=== PATIENT | male | born 1990 | race Caucasian/White ===

== ENCOUNTER 2017-11-29 10:59 | Emergency (ER) | payer BC, OTHER ==
[2017-11-29 11:05] VITALS: BP 133/79; PULSE 52; TEMP 97.6; BMI 29.1
--- NOTE | 2017-11-29 11:07 | PDOC ---
History of Present Illness - General Chief Complaint: Pain Stated Complaint: RT FOOT RADIATING TO ANKLE PAIN Time Seen by Provider: 11/29/17 11:05 History Source: Patient Exam Limitations: No Limitations - History of Present Illness Initial Comments: 27 yo M presents with R foot pain for the past few days. He states that he was lifting something heavy yesterday, woke up with pain to the R foot, dorsal surface and into the arch. No direct trauma to the foot. No numbness or weakness. He runs 2 miles approximately 3 times per week, has not changed his mileage. He lifts weights, no recent changes. He does not have pain with stretching his foot, just with walking. 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 Past History - Past Medical History Allergies/Adverse Reactions: Allergies Allergy/AdvReac Type Severity Reaction Status Date / Time No Known Allergies Allergy Verified 11/29/17 11:00 Home Medications: Ambulatory Orders Methylprednisolone [Medrol Dose Sukhwinder] 4 mg PO ASDIR #21 tablet 11/29/17 COPD: No - Immunization History Immunization Up to Date: Yes - Suicide/Smoking/Psychosocial Hx Smoking History: Never smoked Have you smoked in the past 12 months: No Number of Cigarettes Smoked Daily: 0 Information on smoking cessation initiated: No Hx Alcohol Use: (occasional) Drug/Substance Use Hx: No Substance Use Type: None Review of Systems - Review of Systems Able to Perform ROS?: Yes Comments:: GENERAL/CONSTITUTIONAL: No fever or chills. No weakness. HEAD, EYES, EARS, NOSE AND THROAT: No change in vision. No ear pain or discharge. No sore throat. MUSCULOSKELETAL: No joint or muscle swelling or pain. No neck or back pain. SKIN: No rash NEUROLOGIC: No headache, vertigo, loss of consciousness, or change in strength/ sensation. HEMATOLOGIC/LYMPHATIC: No anemia, easy bleeding, or history of blood clots. ALLERGIC/IMMUNOLOGIC: No hives or skin allergy. *Physical Exam - Vital Signs Last Vital Signs Temp Pulse Resp BP Pulse Ox 97.6 F 52 L 18 133/79 100 11/29/17 11:00 11/29/17 11:00 11/29/17 11:00 11/29/17 11:00 11/29/17 11:00 - Physical Exam Comments: GENERAL: Awake, alert, and fully oriented, in no acute distress HEAD: No signs of trauma EYES: PERRLA, EOMI, sclera anicteric, conjunctiva clear EXTREMITIES: R foot with tenderness to the dorsal foot just proximal to the toes. No swelling, no erythema, no skin changes. Plantar fascia with no tenderness. No bony tenderness. Remainder of extremities with normal range of motion, no edema. No clubbing or cyanosis. No cords, erythema, or tenderness. NEUROLOGICAL: Cranial nerves II through XII grossly intact. Normal speech, normal gait. Motor and sensation intact. SKIN: Warm, Dry, normal turgor, no rashes or lesions noted. Medical Decision Making - Medical Decision Making 11/29/17 15:57 Contacted patient with XR results. I have sent medrol dose sukhwinder to his pharmacy. Recommended f/u with podiatry or sports med for foot pain, as I suspect a tendinitis. *DC/Admit/Observation/Transfer Diagnosis at time of Disposition: Foot pain, right - Discharge Dispostion Disposition: HOME Condition at time of disposition: Stable Decision to Admit order: No - Prescriptions Prescriptions: Methylprednisolone [Medrol Dose Sukhwinder] 4 mg PO ASDIR #21 tablet - Referrals Referrals: Kenny Felix [Primary Care Provider] - - Patient Instructions Printed Discharge Instructions: DI for Foot Pain - Post Discharge Activity Forms/Work/School Notes: Back to Work
== END 2017-11-29 13:50 | disposition home or self-care (01) ==
LOC: FER 10:59
DX: M79.671 Pain in right foot (principal)
CPT/HCPCS: 73630-TC-RT-FY; 99283-25

== ENCOUNTER 2018-06-10 13:36 | Emergency (ER) | payer BC ==
[2018-06-10 13:55] VITALS: TEMP 98.1; BMI 28.3
--- NOTE | 2018-06-10 14:09 | PDOC ---
History of Present Illness - General History Source: Patient Exam Limitations: No Limitations - History of Present Illness Initial Comments: 06/10/18 14:40 The patient is a 28 year old male, with no significant past medical history, who presents to the emergency department 4 days s/p fall with bruising and pain. As per patient [place] and fell on a log onto his left flank. He notes the pain with associated bruising to his flank and upper left ribs, prompting his visit to the ER. He denies any recent chest pain, pain with deep inspiration, or shortness of breath. He denies any recent fevers, chills, headache or dizziness. He denies any recent nausea, vomit, diarrhea or constipation. He denies any recent dysuria , frequency, urgency or hematuria. Allergies: NKDA Past surgical history: None reported. Social History: Social alcohol usage. <Maggy Yan - Last Filed: 06/10/18 14:40> <Oneida Gongora - Last Filed: 06/10/18 16:55> - General Chief Complaint: Injury Stated Complaint: FALL, LEFT SIDE Time Seen by Provider: 06/10/18 13:39 Past History <Maggy Yan - Last Filed: 06/10/18 14:40> - Past Medical History COPD: No - Immunization History Immunization Up to Date: Yes - Suicide/Smoking/Psychosocial Hx Smoking History: Never smoked Have you smoked in the past 12 months: No Number of Cigarettes Smoked Daily: 0 Information on smoking cessation initiated: No Hx Alcohol Use: No Drug/Substance Use Hx: No Substance Use Type: None <Oneida Gongora - Last Filed: 06/10/18 16:55> - Past Medical History Allergies/Adverse Reactions: Allergies Allergy/AdvReac Type Severity Reaction Status Date / Time No Known Allergies Allergy Verified 06/10/18 13:37 Home Medications: Ambulatory Orders NK [No Known Home Medication] 06/10/18 Review of Systems - Review of Systems Able to Perform ROS?: Yes Comments:: 06/10/18 14:41 GENERAL/CONSTITUTIONAL: No fever or chills. No weakness. HEAD, EYES, EARS, NOSE AND THROAT: No change in vision. No ear pain or discharge. No sore throat. GASTROINTESTINAL: No nausea, vomiting, diarrhea or constipation. GENITOURINARY: No dysuria, frequency, or change in urination. CARDIOVASCULAR: No chest pain or shortness of breath. RESPIRATORY: No cough, wheezing, or hemoptysis. +MUSCULOSKELETAL: Left flank and left rib pain with bruising. SKIN: No rash NEUROLOGIC: No headache, vertigo, loss of consciousness, or change in strength/ sensation. ENDOCRINE: No increased thirst. No abnormal weight change. HEMATOLOGIC/LYMPHATIC: No anemia, easy bleeding, or history of blood clots. ALLERGIC/IMMUNOLOGIC: No hives or skin allergy. All Other Systems: Reviewed and Negative <Maggy Yan - Last Filed: 06/10/18 14:40> *Physical Exam - Vital Signs Last Vital Signs Temp Pulse Resp BP Pulse Ox 98.1 F 61 20 153/89 100 06/10/18 13:37 06/10/18 13:37 06/10/18 13:37 06/10/18 13:37 06/10/18 13:37 - Physical Exam Comments: 06/10/18 14:41 Constitutional: Awake, alert, oriented. No acute distress. Head: Normocephalic. Atraumatic Eyes: PERRL. EOMI. Conjunctivae are not pale. ENT: Mucous membranes are moist and intact. Posterior pharynx without exudates or erythema. Uvula midline. Neck: Supple. Full ROM. No lymphadenopathy. Cardiovascular: Regular rate. Regular rhythm. S1, S2 regular. Distal pulses are 2+ and symmetric. Pulmonary/Chest: No evidence of respiratory distress. Clear to auscultation bilaterally No wheezing, rales or rhonchi. +Abdominal: Ecchymosis to the left flank and left upper ribs with tenderness. Soft and non-distended. No rebound, guarding or rigidity. No organomegaly. No palpable masses. Good bowel sounds. Back: No CVA tenderness. Musculoskeletal: No edema. No cyanosis. No clubbing. Full range of motion in all extremities. No calf tenderness. Radial/pedal pulses are intact and 2+ bilaterally Skin: Skin is warm and dry. [= Neurological: Alert and oriented to person, place, and time. Cranial nerves II -XII are grossly intact. Normal speech. Strength is grossly symmetric. No sensory deficits. Psychiatric: Good eye contact. Normal interaction, affect and behavior. <Maggy Yan - Last Filed: 06/10/18 14:40> - Vital Signs Last Vital Signs Temp Pulse Resp BP Pulse Ox 98.1 F 61 20 153/89 100 06/10/18 13:37 06/10/18 13:37 06/10/18 13:37 06/10/18 13:37 06/10/18 13:37 <Oneida Gongora - Last Filed: 06/10/18 16:55> ED Treatment Course - LABORATORY CBC & Chemistry Diagram: 06/10/18 14:23 06/10/18 14:23 - Medications Given in the ED: ED Medications Discontinued Medications Generic Name Dose Route Start Last Admin Trade Name David PRN Reason Stop Dose Admin Sodium Chloride 1,000 ml 06/10/18 14:14 06/10/18 14:37 Normal Saline - IV 06/10/18 14:15 1,000 ml ONCE ONE Administration <Maggy Yan - Last Filed: 06/10/18 14:40> - LABORATORY CBC & Chemistry Diagram: 06/10/18 14:23 06/10/18 14:23 <Oneida Gongora - Last Filed: 06/10/18 16:55> Medical Decision Making - Medical Decision Making 06/10/18 15:47 a/p: 28yo male with L flank pain and ecchymosis after falling onto a log on sunday night -ambulates with a steady gait, nontoxic in appearance -concern for renal or splenic injury -will send labs, ua -will obtain ct with iv contrast -will monitor and reassess -no midline c/t/l spine ttp -pt denies wanting anything for pain -will monitor and reassess 06/10/18 16:46 mild hematuria on ua pending ct 06/10/18 16:47 ct shows soft tissue edema - no acute intraabd pathology 06/10/18 16:47 discussed labs and imaging with the patient discussed all reasons to return to the ED and need for follow up with PMD discussed repeat ua in 1 week to ensure resolution of blood answered all questions. stable for d/c to home 06/10/18 16:52 pt to return for a repeat UA <Oneida Gongora - Last Filed: 06/10/18 16:55> *DC/Admit/Observation/Transfer - Attestations Scribe Attestion: 06/10/18 14:41 Documentation prepared by Maggy Yan, acting as anesthesiology medical doctor for Oneida Gongora DO. <Maggy Yan - Last Filed: 06/10/18 14:40> - Discharge Dispostion Decision to Admit order: No - Attestations Physician Attestion: 06/10/18 16:55 I, Dr. Oneida Gongora DO, attest that this document has been prepared under my direction and personally reviewed by me in its entirety. I further attest, that it accurately reflects all work, treatment, procedures and medical decision -making performed by me. <Oneida Gongora - Last Filed: 06/10/18 16:55> Diagnosis at time of Disposition: Contusion, flank, Hematuria - Discharge Dispostion Disposition: HOME Condition at time of disposition: Stable - Referrals Referrals: hSayne Melton MD [Staff Physician] - Kenny Felix [Non Staff, Medical] - - Patient Instructions Printed Discharge Instructions: DI for Contusion, DI for Hematuria Additional Instructions: Please drink plenty of fluids. Please return for a repeat UA to re- eval for blood. Please follow up with your PMD. Please return to the ED with any further concerns or complaints.
[2018-06-10] MEDS ORDERED: SODIUM CHLORIDE 0.9% 1000 ML INFUS.BAG IV ONE ×2 (14:14→15:49)
[2018-06-10 14:42] LABS: BASO % 1.2 % (0-2.0); EOS % 8.1 % (0-4.5); HEMATOCRIT 50.9 % (35.4-49); HEMOGLOBIN 17.2 GM/dl (11.7-16.9); LYMPH % 26.2 % (8-40); MCH 30.2 pg (25.7-33.7); MCHC 33.8 g/dl (32.0-35.9); MEAN CELL VOLUME 89.2 fl (80-96); MEAN PLT VOLUME 9.1 fl (7.5-11.1); MONO % 8.5 % (3.8-10.2); PLATELET COUNT 231 K/MM3 (134-434); RBC 5.71 M/mm3 (4.00-5.60); RDW 12.3 % (11.9-15.9); WHITE BLOOD COUNT 8.6 K/mm3 (4.0-10.8)
[2018-06-10 14:48] LABS: URINE APPEARANCE Clear; URINE BILIRUBIN Negative (NEGATIVE); URINE COLOR Yellow; URINE GLUCOSE (UA) Negative (NEGATIVE); URINE KETONE Negative (NEGATIVE); URINE LEUK ESTERASE Negative (NEGATIVE); URINE NITRITE Negative (NEGATIVE); URINE PROTEIN Negative (NEGATIVE); URINE UROBILINOGEN 0.2 (0.2-1.0)
[2018-06-10 15:01] LABS: ALBUMIN 4.5 g/dl (3.5-5.0); ALK PHOS 80 U/L (32-92); ANION GAP 11 MMOL/L (8-16); BILIRUBIN,TOTAL 1.1 mg/dl (0.2-1.0); BLOOD UREA NITROGEN 14 mg/dl (7-18); CALCIUM 9.7 mg/dl (8.4-10.2); CHLORIDE 103 mmol/L (98-107); CO2 24 mmol/L (22-28); CREATININE 0.8 mg/dl (0.6-1.3); GLUCOSE,RANDOM 90 mg/dl (74-106); POTASSIUM 3.9 mmol/L (3.5-5.1); SGOT/AST 25 U/L (10-42); SGPT/ALT 36 U/L (10-40); SODIUM 138 mmol/L (136-145); TOT PROT 7.5 g/dl (6.4-8.3)
[2018-06-10 15:02] LABS: ACTIVATED PTT 30.3 SECONDS (25.2-36.5)
[2018-06-10 15:07] LABS: INR 1.05 (0.82-1.09); PROTHROMBIN TIME (PATIENT) 11.7 SEC (10.2-13.0)
[2018-06-10 17:24] VITALS: BP 143/83; PULSE 82
[2018-06-10 19:57] LABS: URINE WBC 0-2 (0-2)
[2018-06-10 22:36] LABS: LIPASE 102 U/L (73-393)
== END 2018-06-10 17:20 | disposition home or self-care (01) ==
LOC: FER 13:36
PROC: 3E0337Z Introduction of Electrolytic and Water Balance Substance into Peripheral Vein, Percutaneous Approach (ICD-10-PCS; principal; 2018-06-10)
DX: S30.1XXA Contusion of abdominal wall, initial encounter (principal); R31.9 Hematuria, unspecified; W01.198A Fall on same level from slipping, tripping and stumbling with subsequent striking against other object, initial encounter; Y93.01 Activity, walking, marching and hiking; Y92.828 Other wilderness area as the place of occurrence of the external cause
CPT/HCPCS: 36415; 74177-TC; 80053; 81003; 81015; 83690; 85025; 85610; 85730; 86850; 86900; 86901; 99283-25; J7030

== ENCOUNTER 2018-06-13 08:07 | Emergency (ER) | payer BC ==
[2018-06-13 08:16] VITALS: BP 129/71; PULSE 77; TEMP 98.2; BMI 28.3
--- NOTE | 2018-06-13 08:44 | PDOC ---
History of Present Illness - General Chief Complaint: Injury Stated Complaint: F/U ON INJURY LEFT SIDE BRUISE Time Seen by Provider: 06/13/18 08:32 - History of Present Illness Initial Comments: 06/13/18 09:19 Chief complaint: Abdominal wall hematoma History of present illness: Patient was treated for abdominal wall hematoma in this ER several days ago. He is back for follow-up. He has no pain, erythema, or warmth in the area of the wound. However, there appears to be more swelling. Had a CAT scan initially which was negative except for abdominal wall injury. Review of systems: Denies fever/chills, chest pain, shortness of breath, abdominal pain, nausea, vomiting, diarrhea, visual or focal neurologic symptoms , unsteadiness of gait, dizziness or lightheadedness. Past medical history: Healthy male, no active medical or surgical problems Family/social history: Reviewed and noncontributory. Physical exam: Alert and oriented well-developed well-nourished no acute distress cheerful and cooperative Afebrile, vital signs normal Abdominal exam reveals a large left lower abdominal hematoma, with skin ecchymosis and bruising. There is no erythema, warmth, and minimal tenderness. There is no deep abdominal tenderness guarding or rebound. Impression: Possibly enlarging hematoma with consolidation. No sign of infection Plan: Rest, avoid increased abdominal pressure, exercise. Warm compresses. Referred for evaluation to Dr. Powers, consider possible surgical evacuation. 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 Fully ambulatory and in no distress upon discharge. Reviewed possible signs of infection and the need to follow-up immediately if increased pain, swelling, warmth, erythema, fever or chills develop. Past History - Past Medical History Allergies/Adverse Reactions: Allergies Allergy/AdvReac Type Severity Reaction Status Date / Time No Known Allergies Allergy Verified 06/13/18 08:09 Home Medications: Ambulatory Orders NK [No Known Home Medication] 06/10/18 COPD: No - Immunization History Immunization Up to Date: Yes - Suicide/Smoking/Psychosocial Hx Smoking History: Never smoked Have you smoked in the past 12 months: No Number of Cigarettes Smoked Daily: 0 Information on smoking cessation initiated: No Hx Alcohol Use: No Drug/Substance Use Hx: No Substance Use Type: None *Physical Exam - Vital Signs Last Vital Signs Temp Pulse Resp BP Pulse Ox 98.2 F 77 20 129/71 100 06/13/18 08:08 06/13/18 08:08 06/13/18 08:08 06/13/18 08:08 06/13/18 08:08 Medical Decision Making - Medical Decision Making 06/13/18 09:24 Urinalysis is negative. No suggestion of rhabdo. *DC/Admit/Observation/Transfer Diagnosis at time of Disposition: Hematoma of abdominal wall Qualifiers: Encounter type: subsequent encounter Qualified Code(s): S30.1XXD - Contusion of abdominal wall, subsequent encounter - Discharge Dispostion Disposition: HOME Condition at time of disposition: Stable Decision to Admit order: No - Referrals - Patient Instructions Printed Discharge Instructions: DI for Hematoma (Bruise) Additional Instructions: Rest, avoid physical activity that increases pressure in the abdomen, and use warm compresses. See specialist as recommended in 4-5 days to determine if surgical evacuation of the hematoma is necessary. If there is increased pain, redness, swelling, or warmth in the area, this could be a sign of infection, and you should be evaluated immediately. - Post Discharge Activity
[2018-06-13 08:47] LABS: URINE APPEARANCE Clear; URINE BILIRUBIN Negative (NEGATIVE); URINE COLOR Yellow; URINE GLUCOSE (UA) Negative (NEGATIVE); URINE KETONE Negative (NEGATIVE); URINE LEUK ESTERASE Negative (NEGATIVE); URINE NITRITE Negative (NEGATIVE); URINE PROTEIN Negative (NEGATIVE); URINE UROBILINOGEN 0.2 (0.2-1.0)
== END 2018-06-13 08:55 | disposition home or self-care (01) ==
LOC: FER 08:07
DX: S30.1XXD Contusion of abdominal wall, subsequent encounter (principal); Y93.9 Activity, unspecified
CPT/HCPCS: 81003; 99282-25

== ENCOUNTER 2018-07-19 11:34 | Emergency (ER) | payer BC ==
--- NOTE | 2018-07-19 11:36 | PDOC ---
History of Present Illness - General Chief Complaint: Pain Stated Complaint: right knee pain Time Seen by Provider: 07/19/18 11:35 - History of Present Illness Initial Comments: 07/19/18 11:43 The patient is a 28 year old male with no significant PMH who presents for evaluation of right knee pain. The patient reports worsening sore right knee pain after playing basketball 5 days ago. He noted worsening pain after running 4 days ago and has had continued pain since that time prompting his presentation to the ED for further evaluation. He notes that the pain worsens with movement and notes that he has not taken any medications for the symptoms. He otherwise denies fevers, chills, SOB, chest pain, nausea, vomiting, abdominal pain, numbness, tingling, weakness, or changes with urination or bowel movements. He notes that his symptoms began gradually and denies any popping sensation or sudden pain at the onset of symptoms. Past History - Past Medical History Allergies/Adverse Reactions: Allergies Allergy/AdvReac Type Severity Reaction Status Date / Time No Known Allergies Allergy Verified 07/19/18 11:45 Home Medications: Ambulatory Orders NK [No Known Home Medication] 06/10/18 COPD: No - Immunization History Immunization Up to Date: Yes - Suicide/Smoking/Psychosocial Hx Smoking History: Never smoked Have you smoked in the past 12 months: No Number of Cigarettes Smoked Daily: 0 Hx Alcohol Use: No Drug/Substance Use Hx: No Substance Use Type: None Review of Systems - Review of Systems Comments:: 07/19/18 11:56 Constitutional: No fevers, chills, fatigue, malaise HEENT: No Rhinorrhea, nasal congestion, visual changes Cardiovascular: No chest pain, syncope, palpitations, lightheadedness Respiratory: No Cough, SOB, Hemoptysis, Gastrointestinal: No Abdominal pain, Nausea, Vomiting, Constipation, Diarrhea, Melena Genitourinary: No Dysuria, Frequency, Urgency, Hesitancy, Hematuria, Flank pain Musculoskeletal: Right knee pain. No Myalgia, arthralgia Skin: No rashes, itching, bruising, pallor Neurologic: No Headache, Dizziness, Numbness, Weakness, or Tingling Psychiatric: No Hallucinations. No SI or HI *Physical Exam - Physical Exam Comments: 07/19/18 11:57 General Appearance: Nourished. No Apparent Distress HEENT: No Pharyngeal Erythema, Tonsillar Exudate, Tonsillar Erythema Neck: No Cervical Lymphadenopathy Respiratory/Chest: Lungs Clear, Normal Breath Sounds. No Crackles, Rales, Rhonchi, Wheezing Cardiovascular: Regular Rhythm, Regular Rate. No Murmur, Gallops, Rubs Gastrointestinal/Abdominal: Normal Bowel Sounds, Soft. No Guarding, Rebound, Tenderness Musculoskeletal: Right lateral knee pain with extension. Stable joint on exam. Sensation to light touch and temperature. 2+ dp pulses bilaterally. No CVA Tenderness Extremity: Normal Capillary Refill Integumentary: Normal Color, Dry, Warm Neurologic: Fully Oriented, Alert, Normal Mood/Affect, Normal Response, Medical Decision Making - Medical Decision Making 07/19/18 11:59 The patient is a 28 year old male with no significant PMH who presents for evaluation of right knee pain. Differential includes but is not limited to: Tendonitis, Muscle Strain, Fracture, Ligamentous injury. We will obtain plain films to evaluate further and treat with motrin. We will continue to monitor and reassess while here in the ED. 07/19/18 12:43 Patient eloped prior to receiving medications or obtaining imaging. *DC/Admit/Observation/Transfer Diagnosis at time of Disposition: Knee pain Qualifiers: Chronicity: unspecified Laterality: unspecified laterality Qualified Code(s): M25.569 - Pain in unspecified knee - Discharge Dispostion Disposition: ELOPED Condition at time of disposition: Stable - Referrals - Patient Instructions - Post Discharge Activity
[2018-07-19] MEDS ORDERED: IBUPROFEN 600 MG TABLET (FP) PO ONE (11:42)
[2018-07-19 11:48] VITALS: BP 122/70; PULSE 66; TEMP 97.7; BMI 28.3
--- NOTE | 2018-07-19 12:12 | PDOC ---
Attending Attestation - Resident Resident Name: Lenny Del Toro - ED Attending Attestation I have performed the following: The case was reviewed & discussed with the resident, I agree w/resident's findings & plan, Exceptions are as noted - HPI HPI: 07/19/18 12:09 I tried looking for the patient to examine him, but could not find him. We suspect that he eloped. - Physicial Exam PE: 07/19/18 12:12 - Medical Decision Making 07/19/18 16:36 Pt left prior to my evaluation.
== END 2018-07-19 12:00 | disposition left against medical advice (07) ==
LOC: FER 11:34
DX: M25.561 Pain in right knee (principal)
CPT/HCPCS: 99281-25

== ENCOUNTER 2024-03-31 09:01 | Emergency (ER) | payer BC, OTHER ==
[2024-03-31 09:11] VITALS: BP 131/75; PULSE 50; RESP 18; TEMP 98.2; BMI 30.5
== END 2024-03-31 11:30 | disposition home or self-care (01) ==
LOC: FER 09:01
PROC: 2W3RX1Z Immobilization of Left Lower Leg using Splint (ICD-10-PCS; principal; 2024-03-31)
DX: S82.832A Other fracture of upper and lower end of left fibula, initial encounter for closed fracture (principal); X50.1XXA Overexertion from prolonged static or awkward postures, initial encounter
CPT/HCPCS: 73610-TC-LT-FY; 73630-TC-LT; 99283-25